=== PATIENT | female | born 1985 | race Caucasian/White ===

== ENCOUNTER 2017-08-17 11:46 | Emergency (ER) | payer MEDICAID ==
[~2017-08-17] VITALS: Ht 165.1 cm; Wt 68.0 kg
[~2017-08-17 11:46] MED LIST: IBUP800T23 PO
[2017-08-17 11:48] VITALS: BP 133/90; PULSE 92; RESP 20; TEMP 98.6; O2SAT 99
[2017-08-17] MEDS ORDERED: DICY10 PO (12:18)
[2017-08-17] MEDS ORDERED: TRAM50TA PO (12:18)
--- NOTE | 2017-08-17 12:18 | PD ---
HPI Chief Complaint: Abdominal Pain Time Seen by Provider: 11:57 Travel History International Travel<30 days: No Contact w/Intl Traveler<30days: No Traveled to known affect area: No History of Present Illness HPI 32-year-old female arrives complaining of lower abdominal pain associated with bulging or hernia. She follows with Dr. Anderson at [facility]. She is supposed to have surgery in the next 6 weeks or so. She reports a constant pain. Positive bowel movements. Positive flatus. No vomiting. Appetite slightly decreased. No fever. Pain is moderate to severe at times. PFSH Past Medical History Cancer: No Cardiovascular Problems: No Diabetes: No Diminished Hearing: No Endocrine: No Glaucoma: Yes Genitourinary: No Hepatitis: No Hiatal Hernia: No Immune Disorder: No Musculoskeletal: No Neurologic: No Psychiatric: No Reproductive: No Respiratory: No Thyroid Disease: No Influenza Vaccination: No ?: Not LMP: Jul : 4 Para: 3 Past Surgical History Abdominal Surgery: No AICD: No Cardiac Surgery: No Section: Yes Ear Surgery: No Endocrine Surgery: No Eye Surgery: No Genitourinary Surgery: No Gynecologic Surgery: Yes ( X 3) Joint Replacement: No Oral Surgery: No Pacemaker: No Thoracic Surgery: No Other Surgery: Yes Social History Alcohol Use: Yes (3 liquor drinks per week) Tobacco Use: No Substance Use: No Allergies-Medications (Allergen,Severity, Reaction): Coded Allergies: No Known Allergies (Verified Adverse Reaction, Unknown, 08/17/17) Reported Meds & Prescriptions Reported Meds & Active Scripts Active Tramadol (Tramadol HCl) 50 Mg Tab 100 Mg PO Q6H PRN Bentyl (Dicyclomine HCl) 10 Mg Cap 10 Mg PO TID PRN Review of Systems Except as stated in HPI: all other systems reviewed are Neg General / Constitutional: No: Fever Physical Exam Narrative GENERAL: 32 yo F, WNWD, mild distress SKIN: Warm and dry. HEAD: Atraumatic. Normocephalic. EYES: Pupils equal and round. No scleral icterus. No injection or drainage. ENT: No nasal bleeding or discharge. Mucous membranes pink and moist. NECK: Trachea midline. No JVD. CARDIOVASCULAR: Regular rate and rhythm. RESPIRATORY: No accessory muscle use. Clear to auscultation. Breath sounds equal bilaterally. GASTROINTESTINAL: Soft. Suprapubic abdominal bulge c/w hernia. The hernia is soft. MUSCULOSKELETAL: Extremities without clubbing, cyanosis, or edema. No obvious deformities. NEUROLOGICAL: Awake and alert. No obvious cranial nerve deficits. Motor grossly within normal limits. Five out of 5 muscle strength in the arms and legs. Normal speech. PSYCHIATRIC: Appropriate mood and affect; insight and judgment normal. Data Data Last Documented VS Vital Signs Date Time Temp Pulse Resp B/P (MAP) Pulse Ox O2 Delivery O2 Flow Rate FiO2 08/17/17 12:54 08/17/17 11:48 98.6 92 20 99 Room Air VS reviewed Vital Signs Date Time Temp Pulse Resp B/P (MAP) Pulse Ox O2 Delivery O2 Flow Rate FiO2 08/17/17 12:54 08/17/17 11:48 98.6 92 20 133/90 (104) 99 Room Air Orders Orders Ed Discharge Order (08/17/17 12:19) Tramadol-Acetamin 37.5-325 Mg (Ultracet (08/17/17 12:30) MDM Medical Decision Making Medical Screen Exam Complete: Yes Emergency Medical Condition: Yes Medical Record Reviewed: Yes Differential Diagnosis incarcerated hernia, reducible hernia, strangulated hernia Narrative Course There is no incarceration or strangulation however pain is worsening for patient. She will need hernia repair. Pt advised to try abdominal binder. Pain control as below. Follow up with Dr Anderson Diagnosis Primary Impression: Abdominal wall hernia Referrals: General Surgeon 2 days Med/Other Pt SpecificInfo: Prescription(s) given Scripts Tramadol (Tramadol) 50 Mg Tab 100 MG PO Q6H Y for PAIN, #20 TAB 0 Refills Prov: Chao Chew MD 08/17/17 Dicyclomine (Bentyl) 10 Mg Cap 10 MG PO TID Y for Bowel Management, #30 CAP 0 Refills Prov: Chao Chew MD 08/17/17 Disposition: 01 DISCHARGE HOME Condition: Stable Chao Chew MD Aug 17, 2017 12:18
[2017-08-17] MEDS ORDERED: traMADol/ACETAMINOPHEN 37.5/325 1 TAB PO ONE (12:30)
== END 2017-08-17 12:59 | disposition home or self-care (01) ==
LOC: NEPD 11:46
DX: K43.9 Ventral hernia without obstruction or gangrene (principal); H40.9 Unspecified glaucoma
CPT/HCPCS: 99284

== ENCOUNTER 2017-10-15 19:27 | Emergency (ER) | payer MEDICAID, OTHER ==
[~2017-10-15] VITALS: Ht 165.1 cm; Wt 68.5 kg
[~2017-10-15 19:27] MED LIST changes: +DICY10 PO; -IBUP800T23 PO; +TRAM50TA PO
[2017-10-15 20:38] VITALS: BP 144/80; PULSE 97; RESP 16; TEMP 98.5; O2SAT 100
[2017-10-15] MEDS ORDERED: MORPHINE SULFATE 2 MG/ML INJ IV PUSH ONE (21:00)
[2017-10-15] MEDS ORDERED: ONDANSETRON HCL 4 MG/2 ML VIAL IV PUSH ONE (21:00)
[2017-10-15] MEDS ORDERED: SODIUM CHLOR 0.9% 1000 ML INJ 1,000 ML IV ONE (21:15)
--- NOTE | 2017-10-15 21:21 | PD ---
HPI Chief Complaint: Abdominal Pain Time Seen by Provider: 20:45 Travel History International Travel<30 days: No Contact w/Intl Traveler<30days: No Traveled to known affect area: No History of Present Illness HPI Patient is a 32-year-old female who had a in January it was her third after that she developed a herniation of her bowel and part of her bladder through the incision. She has been dealing with this hernia off and on for the last few months she is scheduled for surgery 26 October. Patient is coming in complaining of pain pressure and it is getting worse that is in the same area that she has had the pain before. She apparently wore a truss support and that helped with the hernia pain but eventually it started to hurt her more than help she reports. In the ER now she complains of nausea vomiting pain focally in the suprapubic incision. Patient has not had a CAT scan since May patient was in our ER in August and was treated and discharged with the plan for surgery which is scheduled. PFSH Past Medical History Cancer: No Cardiovascular Problems: No Diabetes: No Diminished Hearing: No Endocrine: No Glaucoma: Yes Genitourinary: No Hepatitis: No Hiatal Hernia: No Immune Disorder: No Musculoskeletal: No Neurologic: No Psychiatric: No Reproductive: No Respiratory: No Thyroid Disease: No Tetanus Vaccination: Unknown Influenza Vaccination: No ?: Not LMP: 10/15/17 : 4 Para: 3 Miscarriage: 1 Past Surgical History Abdominal Surgery: No AICD: No Cardiac Surgery: No Section: Yes Ear Surgery: No Endocrine Surgery: No Eye Surgery: No Genitourinary Surgery: No Gynecologic Surgery: Yes ( X 3) Joint Replacement: No Oral Surgery: No Pacemaker: No Thoracic Surgery: No Other Surgery: Yes Social History Alcohol Use: No Tobacco Use: No Substance Use: No Allergies-Medications (Allergen,Severity, Reaction): Coded Allergies: No Known Allergies (Verified Adverse Reaction, Unknown, 10/15/17) Reported Meds & Prescriptions Reported Meds & Active Scripts Active Audubon (Hydrocodone-Acetaminophen) 5 Mg-325 Mg Tab 1 Tab PO Q6H PRN Ibuprofen 600 Mg Tab 600 Mg PO Q6H PRN Tramadol (Tramadol HCl) 50 Mg Tab 100 Mg PO Q6H PRN Review of Systems Except as stated in HPI: all other systems reviewed are Neg Gastrointestinal: Positive: Nausea, Vomiting, Abdominal Pain Physical Exam Narrative GENERAL: non toxic holding her abdo leaning forward SKIN: Warm and dry. HEAD: Atraumatic. Normocephalic. EYES: Pupils equal and round. No scleral icterus. No injection or drainage. ENT: No nasal bleeding or discharge. Mucous membranes pink and moist. NECK: Trachea midline. No JVD. CARDIOVASCULAR: Regular rate and rhythm. RESPIRATORY: No accessory muscle use. Clear to auscultation. Breath sounds equal bilaterally. GASTROINTESTINAL: Abdomen Pt has a lower bikini line scar well healed with defect in the middle of the incision .. no bowel is felt thru the defect , no hard lump ,I do not feel any knot of incarcerated loop of bowel in defect. Hepatic and splenic margins not palpable. MUSCULOSKELETAL: Extremities without clubbing, cyanosis, or edema. No obvious deformities. NEUROLOGICAL: Awake and alert. No obvious cranial nerve deficits. Motor grossly within normal limits. Five out of 5 muscle strength in the arms and legs. Normal speech. PSYCHIATRIC: Appropriate mood and affect; insight and judgment normal. Data Data Last Documented VS Orders Orders Complete Blood Count With Diff (10/15/17 21:00) Lactic Acid (10/15/17 21:00) Comprehensive Metabolic Panel (10/15/17 21:00) Morphine Inj (Morphine Inj) (10/15/17 21:00) Ondansetron Inj (Zofran Inj) (10/15/17 21:00) Abdomen, Upright Only (10/15/17 ) Ed Urine Pregnancytest Poc (10/15/17 21:01) Urinalysis - C+S If Indicated (10/15/17 21:01) Sodium Chlor 0.9% 1000 Ml Inj (Ns 1000 M (10/15/17 21:15) Ondansetron Inj (Zofran Inj) (10/16/17 00:00) Morphine Inj (Morphine Inj) (10/16/17 00:00) Ed Discharge Order (10/16/17 01:33) Labs Laboratory Tests Test 10/15/17 21:11 10/15/17 22:15 White Blood Count 11.5 TH/MM3 Red Blood Count 4.68 MIL/MM3 Hemoglobin 14.4 GM/DL Hematocrit 42.3 % Mean Corpuscular Volume 90.5 FL Mean Corpuscular Hemoglobin 30.7 PG Mean Corpuscular Hemoglobin Concent 34.0 % Red Cell Distribution Width 14.6 % Platelet Count 189 TH/MM3 Mean Platelet Volume 9.8 FL Neutrophils (%) (Auto) 90.3 % Lymphocytes (%) (Auto) 6.3 % Monocytes (%) (Auto) 2.6 % Eosinophils (%) (Auto) 0.7 % Basophils (%) (Auto) 0.1 % Neutrophils # (Auto) 10.4 TH/MM3 Lymphocytes # (Auto) 0.7 TH/MM3 Monocytes # (Auto) 0.3 TH/MM3 Eosinophils # (Auto) 0.1 TH/MM3 Basophils # (Auto) 0.0 TH/MM3 CBC Comment DIFF FINAL Differential Comment Blood Urea Nitrogen 7 MG/DL Creatinine 0.76 MG/DL Random Glucose 92 MG/DL Total Protein 7.4 GM/DL Albumin 3.6 GM/DL Calcium Level 8.7 MG/DL Alkaline Phosphatase 74 U/L Aspartate Amino Transf (AST/SGOT) 14 U/L Alanine Aminotransferase (ALT/SGPT) 15 U/L Total Bilirubin 0.7 MG/DL Sodium Level 139 MEQ/L Potassium Level 3.8 MEQ/L Chloride Level 107 MEQ/L Carbon Dioxide Level 24.1 MEQ/L Anion Gap 8 MEQ/L Estimat Glomerular Filtration Rate 88 ML/MIN Lactic Acid Level 0.8 mmol/L Urine Color CRISTINA Urine Turbidity HAZY Urine pH 6.5 Urine Specific Boley 1.026 Urine Protein 30 mg/dL Urine Glucose (UA) NEG mg/dL Urine Ketones 40 mg/dL Urine Occult Blood LARGE Urine Nitrite NEG Urine Bilirubin NEG Urine Urobilinogen 2.0 MG/DL Urine Leukocyte Esterase SMALL Urine RBC /hpf Urine WBC 6 /hpf Urine Squamous Epithelial Cells 1 /hpf Urine Bacteria OCC /hpf Urine Mucus FEW /lpf Microscopic Urinalysis Comment CULT NOT INDICATED MDM Medical Decision Making Medical Screen Exam Complete: Yes Emergency Medical Condition: Yes Differential Diagnosis herniation thru surgivcla scar vs bladder or bowel entrapment , vs chronic pain from scar other SBO ileus Narrative Course KUB UPRIGHT no airfluid levels no sign of obstruction .. on PE i felt soft bowel easily reduced thru surgical scar no hard lump no need for further CT or emergent work up LActic acid sent for eval of ischemic gut lactic acid normal level sfe for d/c to follow up surgeon who is aware of her hernia and surgery scheduled Pain meds and close outpt follow up in AM pt agrees. Risk benefit of radiation of repeat CT discussed pt agrees with outpt plan Diagnosis Primary Impression: Hernia Additional Impression: Pain in surgical scar Patient Instructions: General Instructions, Incisional Hernia (GEN) Scripts Hydrocodone-Acetaminophen (Audubon) 5 Mg-325 Mg Tab 1 TAB PO Q6H Y for PAIN, #10 TAB 0 Refills Prov: Phillip Berg MD 10/16/17 Ibuprofen (Ibuprofen) 600 Mg Tab 600 MG PO Q6H Y for Pain/Inflammation, #40 TAB 0 Refills Prov: Phillip Berg MD 10/16/17 Disposition: DISCHARGE HOME Condition: Good Phillip Berg MD Oct 15, 2017 21:21
[2017-10-15 21:24] LABS: AUTOMATED NEUTROPHIL # 10.4 TH/MM3 (1.8-7.7); BASOPHIL % 0.1 % (0.0-2.0); EOSINOPHIL # 0.1 TH/MM3 (0-0.4); EOSINOPHIL % 0.7 % (0.0-4.0); HEMATOCRIT 42.3 % (35.0-46.0); HEMOGLOBIN 14.4 GM/DL (11.6-15.3); LYMPH % 6.3 % (9.0-44.0); LYMPHOCYTE # 0.7 TH/MM3 (1.0-4.8); MEAN CELL VOLUME 90.5 FL (80.0-100.0); MEAN CORPUSCULAR HEMOGLOBIN 30.7 PG (27.0-34.0); MEAN PLATELET VOLUME 9.8 FL (7.0-11.0); MONO % 2.6 % (0.0-8.0); MONOCYTE # 0.3 TH/MM3 (0-0.9); NEUT % 90.3 % (16.0-70.0); PLATELET COUNT 189 TH/MM3 (150-450); RED BLOOD COUNT 4.68 MIL/MM3 (4.00-5.30); RED CELL DISTRIBUTION WIDTH 14.6 % (11.6-17.2); WHITE BLOOD COUNT 11.5 TH/MM3 (4.0-11.0)
[2017-10-15 21:38] LABS: ALBUMIN 3.6 GM/DL (3.4-5.0); ALT (GPT) 15 U/L (10-53); AST (GOT) 14 U/L (15-37); BICARBONATE 24.1 MEQ/L (21.0-32.0); BLOOD UREA NITROGEN 7 MG/DL (7-18); CALCIUM 8.7 MG/DL (8.5-10.1); CHLORIDE 107 MEQ/L (98-107); CREATININE 0.76 MG/DL (0.50-1.00); GLOMERULAR FILTRATION RATE 88 ML/MIN (>89); GLUCOSE,RANDOM 92 MG/DL (74-106); SODIUM (NA) 139 MEQ/L (136-145)
[2017-10-15 21:40] LABS: ALKALINE PHOSPHATASE 74 U/L (45-117); TOTAL BILIRUBIN ADULT 0.7 MG/DL (0.2-1.0); TOTAL PROTEIN 7.4 GM/DL (6.4-8.2)
[2017-10-15 21:44] VITALS: BP 126/72; PULSE 82; RESP 16; O2SAT 98
--- NOTE | 2017-10-15 22:06 | RADRPT ---
EXAM DATE/TIME: 10/15/2017 21:24 [facility] COMPARISON: No previous studies available for comparison. INDICATIONS : Abdominal pain- Hernia pain. MEDICAL HISTORY : None. SURGICAL HISTORY : section. ENCOUNTER: Initial ACUITY: 7 - 11 months PAIN SCORE: 10/10 LOCATION: Abdomen. FINDINGS: There is no bowel obstruction or ileus. No free intraperitoneal air is noted. There is a 9 mm radiopa que density within the right abdomen raises the possibly of gallstone. Mild scoliosis of the lumbar s pine is noted. CONCLUSION: No evidence of bowel obstruction or ileus. 9 mm radiopaque density within the right abdomen raising t he possibility of gallstone. Mild scoliosis of the lumbar spine. Dirk Clark MD on October 15, 2017 at 22:03 Board Certified Radiologist. This report was verified electronically.
[2017-10-15 22:34] LABS: BACTERIA, URINE OCC /hpf; BLOOD, URINE LARGE (NEG); GLUCOSE,URINE NEG (NEG); KETONE, URINE 40 mg/dL (NEG); MUCUS URINE FEW /lpf (OCC); NITRITE,URINE NEG (NEG); PH, URINE 6.5 (5.0-8.5); SQUAMOUS EPITHELIAL CELL URINE 1 /hpf (0-5); URINE LEUKOCYTE ESTERASE SMALL (NEG)
[2017-10-15 22:35] LABS: URINE COLOR AMBER (YELLW/STRAW)
[2017-10-15 22:37] LABS: BILIRUBIN, URINE NEG (NEG)
[2017-10-16] MEDS ORDERED: ONDANSETRON HCL 4 MG/2 ML VIAL IV PUSH ONE
[2017-10-16] MEDS ORDERED: MORPHINE SULFATE 2 MG/ML INJ IV PUSH ONE
[2017-10-16] MEDS ORDERED: NORC5TAB PO (01:19)
[2017-10-16] MEDS ORDERED: IBUP-232 PO (01:19)
== END 2017-10-16 01:45 | disposition home or self-care (01) ==
LOC: NEPC 19:27
DX: K46.9 Unspecified abdominal hernia without obstruction or gangrene (principal)
CPT/HCPCS: 74018; 80053; 81001; 83605; 84703; 85025; 96361; 96374; 96375; 99284; J2270; J2405; J7030

== ENCOUNTER 2017-11-30 11:11 | Emergency (ER) | payer MEDICAID, OTHER ==
[~2017-11-30 11:11] MED LIST changes: -DICY10 PO; +IBUP-232 PO; +NORC5TAB PO
[2017-11-30 11:23] VITALS: BP 136/80; PULSE 84; RESP 18; TEMP 98.5; O2SAT 100
[2017-11-30] MEDS ORDERED: TRAM50TA PO (12:40)
--- NOTE | 2017-11-30 12:40 | PD ---
HPI Chief Complaint: Lump, Cyst, Hernia Time Seen by Provider: 12:17 Travel History International Travel<30 days: No Contact w/Intl Traveler<30days: No Traveled to known affect area: No History of Present Illness HPI The patient is a 32-year-old female who presents to the emergency department for hernia evaluation. The patient has a long-standing history of a lower abdominal hernia secondary to previous section incision. The patient has been evaluated by her general surgeon who is located at [place] and is scheduled to undergo repair next month. The patient has had the hernia for an extended period of time, she states it is always reducible when she lies supine. However, she now notes a discomfort in the perivaginal area, is wondering whether she has bladder prolapse secondary to the hernia. She does complain of mild discomfort at times and pressure which is intermittent. She denies any actual dysuria, frequency, urgency, or visible protuberance of her bladder. The patient does have children, all via section. She denies any nausea or vomiting. Upon arrival she is asymptomatic. PFSH Past Medical History Cancer: No Cardiovascular Problems: No Diabetes: No Diminished Hearing: No Endocrine: No Glaucoma: Yes Genitourinary: No Hepatitis: No Hiatal Hernia: No Immune Disorder: No Musculoskeletal: No Neurologic: No Psychiatric: No Reproductive: No Respiratory: No Thyroid Disease: No ?: Not LMP: 11/16/17 : 4 Para: 3 Miscarriage: 1 Past Surgical History Abdominal Surgery: No AICD: No Cardiac Surgery: No Section: Yes Ear Surgery: No Endocrine Surgery: No Eye Surgery: No Genitourinary Surgery: No Gynecologic Surgery: Yes ( X 3) Joint Replacement: No Oral Surgery: No Pacemaker: No Thoracic Surgery: No Other Surgery: Yes Social History Alcohol Use: No Tobacco Use: No Substance Use: No Allergies-Medications (Allergen,Severity, Reaction): Coded Allergies: No Known Allergies (Verified Adverse Reaction, Unknown, 10/15/17) Reported Meds & Prescriptions Reported Meds & Active Scripts Active Tramadol (Tramadol HCl) 50 Mg Tab 100 Mg PO Q6H PRN Review of Systems Except as stated in HPI: all other systems reviewed are Neg Gastrointestinal: Positive: Other (Large anterior and inferior abdominal wall hernia that is reducible when lying supine), No: Nausea, Vomiting Genitourinary: Positive: Other (As noted in the history of present illness), No : Urgency, Frequency, Dysuria, Discharge, Vaginal Bleeding Physical Exam Narrative GENERAL: Awake, alert, pleasant 32-year-old female who appears her stated age and is in no acute respiratory distress. SKIN: Focused skin assessment warm/dry. HEAD: Atraumatic. Normocephalic. EYES: No injection or drainage. GASTROINTESTINAL: Abdomen soft, non-tender, nondistended. Transverse incision with reducible lower abdominal wall hernia. No tenderness. Pelvic: Exam was performed in the presence of a female nurse. External examination reveals no obvious cystocele or rectocele. Digital examination of the vagina, patient was asked to Valsalva, there is no palpable protuberance of a cystocele. MUSCULOSKELETAL: No obvious deformities. No clubbing. No cyanosis. No edema. NEUROLOGICAL: Awake and alert. No obvious cranial nerve deficits. Motor grossly within normal limits. Normal speech. PSYCHIATRIC: Appropriate mood and affect; insight and judgment normal. Data Data Last Documented VS Vital Signs Date Time Temp Pulse Resp B/P (MAP) Pulse Ox O2 Delivery O2 Flow Rate FiO2 11/30/17 11:23 98.5 84 18 136/80 (98) 100 Orders Orders Ed Discharge Order (11/30/17 12:32) MDM Medical Decision Making Medical Screen Exam Complete: Yes Emergency Medical Condition: Yes Medical Record Reviewed: Yes Differential Diagnosis Differential diagnosis includes cystocele, uterine prolapse, rectocele, incarcerated hernia, strangulate hernia, reducible hernia. Narrative Course Physical examination was performed in the presence of a female nurse. There is no obvious cystocele or rectocele. No obvious protuberance of the uterus. The patient's abdominal hernia is reducible. The patient is stable for outpatient follow-up. Diagnosis Primary Impression: Abdominal wall hernia Additional Impression: Medication refill Patient Instructions: General Instructions Additional Instructions: Follow-up with her general surgeon. Tramadol as directed. Return if symptoms worsen or progress. Med/Other Pt SpecificInfo: Prescription(s) given Scripts Tramadol (Tramadol) 50 Mg Tab 100 MG PO Q6H Y for PAIN, #12 TAB 0 Refills Prov: Chuck Soria MD 11/30/17 Disposition: 01 DISCHARGE HOME Condition: Stable Chuck Soria MD Nov 30, 2017 12:40
== END 2017-11-30 13:03 | disposition home or self-care (01) ==
LOC: NEPD 11:11
DX: K43.9 Ventral hernia without obstruction or gangrene (principal); Z76.0 Encounter for issue of repeat prescription
CPT/HCPCS: 99283